=== PATIENT | female | born 2000 | race Caucasian/White ===

== ENCOUNTER 2024-04-15 15:29 | Emergency (ER) | payer BC, SELFPAY ==
[2024-04-15 15:38] VITALS: BP 142/91; PULSE 83; RESP 16; TEMP 36.6; O2SAT 99; BMI 34.7
[2024-04-15 18:10] VITALS: BP 128/68; PULSE 57; RESP 16; TEMP 36.5; O2SAT 100
--- NOTE | 2024-04-15 19:09 | ED_ITS ---
HPI - Dental/Oral 2 General: Chief complaint: Dental/Oral Stated complaint: left side jaw swollen and pain Time Seen by Provider: 04/15/24 19:01 History of Present Illness: Patient arrives in the emergency department complaining of left-sided dental fracture and dental pain. Onset of symptoms 2 days ago. Last night she developed considerable swelling in the left lower jaw as well as the neck. It has improved but still has considerable pain. Associated symptoms: Denies ear or mastoid pain, fever(s) or odynophagia Related Data Previous Rx's Medication Instructions Recorded amoxicillin 875 mg-potassium 1 tab PO BID 10 days #20 tabs 04/15/24 clavulanate 125 mg tablet chlorhexidine gluconate 0.12 % 15 ml buccal BID #600 mL 04/15/24 mouthwash (Peridex) Allergies Allergy/AdvReac Type Severity Reaction Status Date / Time codeine Allergy Unknown Verified 04/15/24 15:41 Sulfa (Sulfonamide Allergy Unknown Verified 04/15/24 15:41 Antibiotics) Review of Systems 2 General: Reports: 10 or more systems reviewed and unremarkable except in HPI and below Const: Denies: fever(s), chills, change in appetite, change in weight, fatigue or malaise Eyes: Denies: change in vision, eye discomfort, eye discharge or eye redness ENMT: Denies: throat pain, enlarged tonsils, odynophagia, hoarseness, ear or mastoid pain, ear discharge, change in hearing, tinnitus, nasal discharge, nasal congestion, post nasal drip or sinus pain Card: Denies: chest pain, palpitations, irregular heart rhythm, edema, dyspnea on exertion, orthopnea or leg pain with exertion Resp: Denies: dyspnea, productive cough, non-productive cough, wheezing, stridor or chest congestion GI: Denies: abdominal pain, nausea, vomiting, dysphagia, diarrhea, constipation, bloating, GI cramping or hematochezia : Denies: flank pain, difficulty voiding, dysuria, urinary frequency, urinary urgency, urinary hesitancy, oliguria or hematuria Musc: Denies: neck pain, back pain, extremity pain, joint pain, joint swelling, joint redness, joint warmth or muscle weakness Skin/Breast: Denies: rash, pruritus, erythema, photosensitivity or new lesions Neuro: Denies: headache(s), numbness in extremities, weakness in extremities, sensory changes, lack of coordination, difficulty walking, frequent falls, dizziness, confusion, Slurred speech present, difficulty communicating thoughts, seizure-like activity or involuntary movements Endo: Denies: polyuria, polydipsia or tired all the time Andriy/Lymph: Denies: easy bruising or easy bleeding Physical Exam 2 Const: COMMON NORMALS: no acute distress, patient oriented x3 and alert G ENERAL APPEARANCE: cooperative ORIENTATION/CONSCIOUSNESS: Yes awake, Yes oriented to person, Yes oriented to place and Yes oriented to time HENMT: COMMON NORMALS: normocephalic and atraumatic HEAD & SCALP: n ormocephalic and atraumatic FACE & SINUS: normal facial exam MOUTH: Normal oral and palatal mucosa present TEETH & GINGIVA: Yes abnormal tooth and associated gingiva, Yes caries, Yes gingiva abnormal hypertrophic, diffusely erythematous, tender and discolored and Yes poor dentition TEETH & GINGIVA IMAGES: 1. Dental fracture of tooth 18 2. Gross diffuse edema. No drainable ab scess THROAT: posterior oropharynx normal Neck/C-Spine: COMMON NORMALS: full ROM GENERAL: Yes normal visual inspection Lymph: LYMPHATIC: no lymphadenopathy noted Chest: COMMONS NORMALS: normal inspection of the chest Breast/axilla inspection: Yes no chest deformity, asymmetry, normal contours, no nodules, masses, tenderness Resp: COMMON NORMALS: normal respiratory effort, No retractions, No use of accessory muscles and clear to auscultation bilaterally EFFORT & INSPECTION: Yes able to speak in complete sentences and Yes symmetric chest movement A USCULTATION: clear to auscultation bilaterally Cardio: COMMON NORMALS: regular rate, regular rhythm and Peripheral pulses 2+ throughout RATE: regular rate RHYTHM: regular rhythm PERIPHERAL PULSES: Peripheral pulses 2+ throughout Extremity: COMMON NORMALS: normal to inspection GENERAL: Yes normal exam except as noted Neuro: COMMON NORMALS: patient oriented x3 SENSORIUM/ORIENTATION: Yes alert, Yes oriented to person, Yes oriented to place and Yes oriented to time CRANIAL NERVES: Yes CN normal except as noted Course 2 Vital Signs: Vital signs: Vital Signs Temperature 97.7 F 04/15/24 18:10 Pulse Rate 57 L 04/15/24 18:10 Respiratory Rate 16 04/15/24 18:10 Blood Pressure 128/68 04/15/24 18:10 Pulse Oximetry 100 04/15/24 18:10 Oxygen Delivery Me thod Room Air 04/15/24 18:10 MDM - Dental/Oral Medical Decision Making Patient evaluated in the emergency department for dental abscess and dental fracture. She was treated here in the emergency department with 60 mg of Toradol, Augmentin, Peridex. She going to discharge her home on Augmentin and Peridex. She needs to see a dentist. Nursing to provide dental list in the area. She does have insurance through [employer]. She has been encouraged to follow-up with HR there to find a list of resources as well. No radiology studies performed this visit Discharge Plan Discharge Patient Disposition: Home Clinical Impression: Toothache, Gingival abscess, Dental abscess, Fracture of tooth, Gingival disease due to bacteria Condition: Stable Prescriptions: New chlorhexidine gluconate [Peridex] 0.12 % mouthwash 15 ml buccal BID Qty: 600 0RF amoxicillin-pot clavulanate 875-125 mg tablet 1 tab PO BID 10 Days Qty: 20 0RF Discharge Orders: Discharge ED (Routine); Ordered 04/15/24 Ordered By: Bhavana Edgar Referrals: Massiel Ibarra APN [Primary Care Provider] - Discharge Diet: Advance as tolerated Discharge Activity: Resume usual activity Patient Instructions: Gingivostomatitis (ED), Periodontal Disease (DC), Pain Management Activity Restrictions/Additional Instructions: Please follow-up with a dentist. Call for an appointment. Please return to the emergency department for new concerning or worsening symptoms Coding Level of Care Code ED [employer] for [employer] [employer]
[2024-04-15] MEDS: amoxicillin-clav 875-125 mg Tablet 1 TAB PO (19:17)
[2024-04-15] MEDS: ketorolac 60 mg/2 mL INJ IM (19:18)
[2024-04-15 19:30] VITALS: BP 131/66; PULSE 56; RESP 16; O2SAT 100
[2024-04-15] MEDS: chlorhexidine gluconate 0.12% Btl 473 mL 30 ML MUCOUS MEM (19:38)
== END 2024-04-15 19:38 | disposition home or self-care (01) ==
PROVIDERS: Emergency Provider Nurse Practitioner; PCP Nurse Practitioner Family
DX: K08.89 Other specified disorders of teeth and supporting structures (principal); K05.20 Aggressive periodontitis, unspecified; K04.7 Periapical abscess without sinus; B96.89 Other specified bacterial agents as the cause of diseases classified elsewhere; K06.9 Disorder of gingiva and edentulous alveolar ridge, unspecified; S02.5XXA Fracture of tooth (traumatic), initial encounter for closed fracture; X58.XXXA Exposure to other specified factors, initial encounter
CPT/HCPCS: 96372; 99284; J1885